=== PATIENT | female | born 1985 | race Caucasian/White ===

== ENCOUNTER 2023-10-11 09:13 | Outpatient (CLI) | payer BC ==
[2023-10-11 10:13] LABS: BASOPHILS # (AUTO) 0.1 10^3/uL (0.0-0.1); BASOPHILS % (AUTO) 0.9 %; EOSINOPHILS # (AUTO) 0.1 10^3/uL (0.0-0.7); EOSINOPHILS % (AUTO) 1.3 %; HCT - HEMATOCRIT 47.8 % (37.0-47.0); HGB - HEMOGLOBIN 15.8 g/dL (12.0-16.0); LYMPHOCYTES % (AUTO) 28.6 %; MEAN CORPUSCULAR HEMOGLOBIN 31.2 pg (27.0-31.0); MEAN CORPUSCULAR HGB CONC 33.1 g/dL (32.0-36.0); MEAN CORPUSCULAR VOLUME 94.3 fL (81.0-99.0); MONOCYTES # (AUTO) 0.5 10^3/uL (0.0-1.0); MONOCYTES % (AUTO) 6.8 %; NEUTROPHILS # (AUTO) 4.4 10^3/uL (1.5-6.6); NEUTROPHILS % (AUTO) 62.1 %; PLT - PLATELET COUNT 262 10^3/uL (130-450); RED BLOOD COUNT 5.07 10^6/uL (4.20-5.40); RED CELL DISTRIBUTION WIDTH 12.6 % (12.0-15.0)
[2023-10-11 10:27] LABS: ALBUMIN 4.8 g/dL (3.2-5.5); ALBUMIN/GLOBULIN RATIO 1.5 (1.0-2.2); ALKALINE PHOSPHATASE 62 IU/L (42-121); ALT ALANINE AMINOTRANSFERASE 28 IU/L (10-60); AST ASPARTATE AMINOTRANSFERASE 37 IU/L (10-42); BILIRUBIN,TOTAL 0.6 mg/dL (0.2-1.0); BUN - BLOOD UREA NITROGEN 13 mg/dL (6-20); CARBON DIOXIDE - CO2 29 mmol/L (21-32); CHLORIDE 102 mmol/L (101-111); CREATININE 0.7 mg/dL (0.6-1.3); GFR - MDRD 95 (>89); GLUCOSE 96 mg/dL (74-104); POTASSIUM 3.8 mmol/L (3.5-4.5); SODIUM 137 mmol/L (135-145)
[2023-10-11 10:32] LABS: PARTIAL THROMBOPLASTIN TIME 32.9 secs (24.9-33.3)
[2023-10-11 10:36] LABS: INR 1.1 (0.8-1.2); PT - PROTHROMBIN TIME 12.3 secs (9.9-12.6)
[2023-10-12 03:10] LABS: HIV SCREEN 4TH GENERATION Non Reactive (Non Reactive)
== END 2023-10-11 09:14 | disposition home or self-care (01) ==
LOC: RT 09:13
PROVIDERS: ATTEND Student in an Organized Health Care Education/Training Program
DX: Z01.818 Encounter for other preprocedural examination (principal)
CPT/HCPCS: 36415; 80053; 84702; 85025; 85610; 85730; 87389; 93005